=== PATIENT | female | born 1985 | race Caucasian/White ===

== ENCOUNTER 2019-12-31 14:10 | Emergency (ER) | payer OTHER ==
[2019-12-31] MEDS ORDERED: ALPRAZolam 0.5 MG TAB ONE (14:31)
[2019-12-31] MEDS ORDERED: Ibuprofen 800 MG TAB ONE (14:31)
== END 2019-12-31 15:13 | disposition home or self-care (01) ==
LOC: BURERS 14:10
DX: F41.9 Anxiety disorder, unspecified (principal); M25.511 Pain in right shoulder; M54.2 Cervicalgia
CPT/HCPCS: 93005